=== PATIENT | male | born 1990 | race Caucasian/White ===

== ENCOUNTER 2017-01-24 00:30 | Emergency (ER) | payer BC ==
[~2017-01-24] VITALS: Ht 177.8 cm; Wt 63.5 kg
--- NOTE | 2017-01-24 00:45 | NUR ---
PT PRESENTED TO THE ER WITH A C/O LT EYE PAIN, REDNESS S/P WIND BLOWING DIRT/SEDIMENT INTO HIS EYE EARLIER IN THE AFTERNOON. PT WAS SEEN BY THE NURSE AT WORK AND SENT HOME. PT STATED THAT HE WOKE UP THIS AM DUE TO EYE PAIN AND HAD DIFFICULTY OPENING THE LT EYE WITHOUT PAIN.
--- NOTE | 2017-01-24 00:50 | NUR ---
PT REC'D TETRACAINE TO LT EYE BY DR. SIMMONS
[2017-01-24] MEDS ORDERED: TETRACAINE HCL/PF 0.5% UD 2 ML BOTTLE ONE (00:52)
[2017-01-24] MEDS ORDERED: FLUORESCEIN SODIUM OPHTH 1 EA STRIP ONE (00:53)
--- NOTE | 2017-01-24 01:07 | NUR ---
DR. SIMMONS IS AT THE BEDSIDE. SLIT LAMP AND FLUOR-ASCENE STRIP AT THE BEDSIDE.
[2017-01-24] MEDS ORDERED: FLUORESCEIN SODIUM OPHTH 1 EA STRIP OP ONE (01:30)
[2017-01-24] MEDS ORDERED: TETRAcaine 5 ML BOTTLE EACHEYE ONE (01:30)
--- NOTE | 2017-01-24 01:36 | NUR ---
Patient discharged to home in stable condition. Written and verbal after care instructions given. Patient verbalizes understanding of instruction AND RX. PT AMBULATED OUT WITH A STEADY GAIT. VSS.
[2017-01-24 01:38] VITALS: BP 120/87
== END 2017-01-24 01:39 | disposition home or self-care (01) ==
LOC: ER 00:30
DX: T15.82XA Foreign body in other and multiple parts of external eye, left eye, initial encounter (principal); X58.XXXA Exposure to other specified factors, initial encounter; Y93.89 Activity, other specified; Y92.89 Other specified places as the place of occurrence of the external cause; Y99.8 Other external cause status
CPT/HCPCS: A4606; Z7610